=== PATIENT | male | born 1995 | race Caucasian/White ===

== ENCOUNTER 2016-10-01 18:54 | Emergency (ER) | payer OTHER ==
[~2016-10-01] VITALS: Ht 188 cm; Wt 122.7 kg
[2016-10-01 18:59] VITALS: TEMP 97.8
[2016-10-01 19:49] LABS: BASO % 0.2 % (0.0-2.0); EOS # 0.4 (0.0-0.7); EOS % 3.5 % (0-4.0); GRAN % 65.4 % (42.2-75.2); HEMATOCRIT 48.4 % (42.0-52.0); HEMOGLOBIN 16.7 g/dl (13.5-18.0); LYMPH # 2.9 (1.2-3.4); MEAN CELL VOLUME 87 fl (80.0-100.0); MEAN CORPUSCULAR HEMOGLOBIN 30 pg (27.0-31.0); MEAN CORPUSCULAR HGB CONC 35 g/dl (33.0-37.0); MEAN PLATELET VOLUME 9.9 fl (7.4-10.4); MONO # 0.8 (0.1-0.6); MONO % 6.7 % (1.7-9.3); PLATELET COUNT 321 K/mm3 (130-400); RED BLOOD COUNT 5.54 M/mm3 (4.20-5.60); WHITE BLOOD COUNT 12.3 K/mm3 (4.8-10.8)
[2016-10-01 19:51] LABS: INR 1.1 (0.8-3.0)
[2016-10-01 19:53] LABS: PARTIAL THROMBOPLASTIN TIME 37.1 SECONDS (26.0-37.0)
[2016-10-01 19:56] LABS: ADJUSTED CALCIUM 9.5 mg/dL (8.4-10.2); ALANINE AMINOTRANSFERASE 35 U/L (21-72); ALBUMIN 4.6 gm/dL (3.5-5.0); ALKALINE PHOSPHATASE 44 U/L (50-136); ANION GAP 14 mmol/L (7-16); BILIRUBIN,TOTAL 0.6 mg/dL (0.0-1.0); BLOOD UREA NITROGEN 15 mg/dL (9-20); CARBON DIOXIDE 22 mmol/L (22-30); CHLORIDE 104 mmol/L (98-107); CREATININE, serum 0.86 mg/dL (0.66-1.25); GLUCOSE 91 mg/dL (74-106); POTASSIUM 4.1 mmol/L (3.4-5.0); SODIUM 140 mmol/L (137-145); TOTAL PROTEIN 7.2 gm/dL (6.4-8.2)
[2016-10-01 20:07] LABS: TROPONIN-I < 0.012 ng/mL (0.000-0.034)
[2016-10-01 20:45] VITALS: BP 154/74; PULSE 82
== END 2016-10-01 20:45 | disposition home or self-care (01) ==
LOC: COL.ER 18:54
PROVIDERS: Family Medicine
DX: R42 Dizziness and giddiness (principal); R53.1 Weakness; R07.9 Chest pain, unspecified
CPT/HCPCS: J7030